=== PATIENT | female | born 2005 | race Caucasian/White ===

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

== ENCOUNTER 2023-04-28 12:58 | Emergency (ER) | payer MEDICAID, SELFPAY ==
--- NOTE | ~2023-04-28 | US_ITS ---
EXAMINATION: US RETROPERITONEAL LIMITED (RENAL ONLY) CLINICAL INFORMATION: Left flank pain, UTI. COMPARISON: None available. TECHNIQUE: Multiple 2-D grayscale and color Doppler ultrasound images of the kidneys were obtained. FINDINGS: RIGHT KIDNEY: 11.1 x 4.7 x 4.8 cm (SAG x AP x TRV). The kidney is normal in size, contour, and echogenicity. Renal cortical thickness is normal. No calculi or focal parenchymal lesions. No hydronephrosis. LEFT KIDNEY: 10.2 x 5.6 x 5.2 cm (SAG x AP x TRV). The kidney is normal in size, contour, and echogenicity. Renal cortical thickness is normal. No calculi or focal parenchymal lesions. No hydronephrosis. US/US renal BI IMPRESSION: No significant renal abnormality.
[2023-04-28 13:56] VITALS: BP 122/80; PULSE 69; RESP 18; TEMP 36.8; O2SAT 100; BMI 24.7
--- NOTE | 2023-04-28 13:59 | ED.FEMALEGU ---
HPI - Female Genitourinary General Chief complaint: Urogenital-Female Stated complaint: UTI/L flank pain/back pain Time Seen by Provider: 04/28/23 15:53 Source: patient, RN notes reviewed and old records reviewed Mode of arrival: ambulatory History of Present Illness HPI Narrative: 17-year-old female diagnosed with UTI today in urgent care started on Macrobid, has taken 1 dose, presenting to the ED complaining of worsening left flank pain, nausea, and dysuria since this morning. Denies vomiting, fever, chills, hematuria, vaginal bleeding/discharge, abdominal pain MD elicited complaint: dysuria, UTI and flank pain Related Data Previous Rx's Medication Instructions Recorded cefpodoxime 200 mg tablet 200 mg PO BID 7 days #14 tabs 04/28/23 Allergies Allergy/AdvReac Type Severity Reaction Status Date / Time No Known Allergies Allergy Verified 11/04/22 08:28 Review of Systems Review of Systems: Constitutional: No Fever, No Chills ENT/Mouth: No Ear Pain, No Nasal Congestion, No sore throat, No Rhinorrhea, No Swallowing Difficulty Cardiovascular: No Chest Pain, No SOB Respiratory: No Cough, No Sputum, No Wheezing Gastrointestinal: + Nausea, No Vomiting, No Diarrhea, No Constipation, No Abdominal pain Genitourinary: + Dysuria, No Urinary Frequency, No Hematuria, No Urinary Incontinence/retention, No Urgency, + Flank Pain Musculoskeletal: No joint pain, No Myalgias, No Joint Swelling Skin: No Skin Lesions, No rash Neuro: No Weakness Yes all other systems are reviewed and are negative Constitutional: Constitutional: Reports as per [facility] Past Medical History Attestation statement: The following information was validated with the patient. Source: old records reviewed Medical History Uterine cyst Social History Social History Alcohol intake: never Advance Directives: No Advance Directives Information Provided: No Physical Exam Vital Signs: Vital Signs: Last Vital Signs Temp 98.2 F 04/28/23 16:35 Pulse 74 04/28/23 16:35 Resp 16 04/28/23 16:35 BP 123/74 04/28/23 16:35 Pulse Ox 98 04/28/23 16:35 O2 Del Method Room Air 04/28/23 16:35 BMI result Body Mass Index 24.7 Const: General: cooperative, healthy appearing and no acute distress Orientation/consciousness: patient oriented x3 Limitations: no limitations HEENT: Head: Yes normal to inspection and Yes atraumatic Ears: hearing grossly normal bilaterally General nose exam: Normal external nose present Face and sinus: Yes normal facial exam Eyes: General: appearance normal, both eyes and all related structures EOM: EOMs intact bilaterally Neck: Neck: Yes normal visual inspection and Yes no meningeal signs Resp: Effort & Inspection: normal respiratory effort and no respiratory distress Auscultation: clear to auscultation bilaterally Cardio: Rate: regular rate Heart sounds: S1 normal heart sound present and S2 normal heart sound present GI: Inspection: Yes normal to inspection Palpation (GI): Soft to palpation, nontender, no guarding and not rigid : General: Yes CVA tenderness on the left Back/Spine/Pelvis: Back: CVA tenderness Skin: Rashes: no rashes Wounds: no wounds Neuro: General: patient oriented x3, tone normal and no meningeal signs Gait exam (Neuro): Normal gait present Extrem: General: Yes normal to inspection Course Course Course Narrative: RME - 17 yo female presents to the ER for evaluation of severe lower back pain after she was diagnosed with a UTI at urgent care this morning. She was started on macrobid and pyridium which she took. She is nauseated but not vomiting. +CVA tenderness on the left side. Not febrile or tachycardic in triage Plan: likely pyelo, less likely kidney stone, lab workup for now, hold off on CT scan -1615--no leukocytosis. Labs otherwise reassuring. UA contaminated however appears infected and with blood/RBCs. 1743--US renal BI IMPRESSION: No significant renal abnormality. > feel change patient's antibiotic to cefpodoxime to cover pyelonephritis. Results discussed with patient including worrisome signs and symptoms and strict return precautions, and when to return to the emergency department. They verbalized understanding and feel safe for discharge at this time. Medications Administered Discontinued Medications Generic Name Dose Route Start Last Admin Trade Name Freq PRN Reason Stop Dose Admin Ketorolac Tromethamine 30 mg 04/28/23 16:28 04/28/23 17:15 Ketorolac Tromethamine 30 Mg/Ml Vial IM 04/28/23 16:29 30 mg ONCE ONE Administration Medical Decision Making Medical Decision Making [facility] Narrative: 17-year-old female diagnosed with UTI today in urgent care started on Macrobid, has taken 1 dose, presenting to the ED complaining of worsening left flank pain, nausea, and dysuria since this morning. On exam vital signs stable, NAD, nontoxic appearing, abdomen soft/nontender, left CVAT noted. Concern for UTI/pyelo. Renal stone on differential however lower. Lower suspicion for diverticulitis/appendicitis or STI Plan: UA, labs, renal ultrasound Please refer to course for remaining clinical decision making, interpretation of labs/imaging results, and discussions with consultants and/or family members. Differential Diagnosis Differential Diagnoses: The differential diagnosis associated with the presentation includes As above Admission/Observation Consideration of admission/observation: Escalation of care including admission/observation considered Lab Data [facility] Lab Attestation statement: I reviewed the patient's lab results. 04/28/23 15:00 04/28/23 15:00 Labs: Lab Results 04/28/23 04/28/23 04/28/23 Range/Units 15:00 15:00 15:00 WBC 7.1 (4.8-10.8) X10*3/uL RBC 4.31 (4.20-5.50) X10*6/uL Hgb 12.0 (12.0-16.0) g/dl Hct 36.4 L (37.0-47.0) % MCV 84.5 (80.0-98.0) fL MCH 27.8 (27.0-33.0) pg MCHC 33.0 (31.0-35.0) g/dl RDW 13.6 (11.0-16.0) % Plt Count 257 (160-400) X10*3/uL MPV 10.9 (9.4-12.3) fL Immature Gran % (Auto) 0.4 (0.0-0.4) % Neut % (Auto) 59.8 (45-73) % Lymph % (Auto) 32.4 (20-40) % Graham % (Auto) 6.3 (2-11) % Eos % (Auto) 0.7 (0-4) % Baso % (Auto) 0.4 (0-2) % Lymph # (Auto) 2.3 (1.2-4.9) X10*3/uL Graham # (Auto) 0.5 (0.1-1.2) X10*3/uL Eos # (Auto) 0.1 (0.0-0.4) X10*3/uL Baso # (Auto) 0.0 (0.0-0.2) X10*3/uL Abs Immat Gran (auto) 0.03 (0.00-0.03) X10*3/uL Absolute Neuts (auto) 4.3 (2.0-8.3) x10*3/uL Absolute Nucleated RBC 0.000 (0.0-0.012) X10*3/uL Nucleated RBC % (auto) 0.0 (0.0-0.2) /100WBC Sodium 139 (135-145) mmol/L Potassium 3.7 (3.3-5.1) mmol/L Chloride 104 (96-108) mmol/L Carbon Dioxide 27 (22-29) mmol/L Anion Gap 12 (12-20) BUN 13 (9-16) mg/dL Creatinine 0.69 (0.5-1.4) mg/dL Estim Creat Clear Calc 127.5 Estimated GFR > 60 Random Glucose 82 (60-115) mg/dL Calcium 9.7 (8.4-10.2) mg/dL Magnesium 2.1 (1.6-2.6) mg/dL Total Bilirubin 0.5 (0.0-1.0) mg/dL Direct Bilirubin 0.2 (0.0-0.5) mg/dL AST 13 (5-31) U/L ALT 11 (0-31) U/L Alkaline Phosphatase 60 (39-117) U/L Total Protein 8.0 (6.5-8.0) g/dL Albumin 4.5 (3.5-5.0) g/dL Beta HCG, Quant < 2 mIU/mL Urine Color Urine Appearance Urine pH (5.0-9.0) Ur Specific [place] (1.005-1.025) Urine Protein (Neg-Trace) mg/dL Urine Glucose (UA) (Negative) mg/dL Urine Ketones (Negative) mg/dL Urine Blood (Negative) Urine Nitrite (Negative) Ur Leukocyte Esterase (Negative) Urine RBC (0-2) /HPF Urine WBC (0-5) /HPF Ur Squamous Epith Cells (0-2) /HPF Urine Bacteria (None Seen) Hyaline Casts (0-2) /LPF Urine Test (NEGATIVE) 04/28/23 04/28/23 Range/Units 15:00 15:01 WBC (4.8-10.8) X10*3/uL RBC (4.20-5.50) X10*6/uL Hgb (12.0-16.0) g/dl Hct (37.0-47.0) % MCV (80.0-98.0) fL MCH (27.0-33.0) pg MCHC (31.0-35.0) g/dl RDW (11.0-16.0) % Plt Count (160-400) X10*3/uL MPV (9.4-12.3) fL Immature Gran % (Auto) (0.0-0.4) % Neut % (Auto) (45-73) % Lymph % (Auto) (20-40) % Graham % (Auto) (2-11) % Eos % (Auto) (0-4) % Baso % (Auto) (0-2) % Lymph # (Auto) (1.2-4.9) X10*3/uL Graham # (Auto) (0.1-1.2) X10*3/uL Eos # (Auto) (0.0-0.4) X10*3/uL Baso # (Auto) (0.0-0.2) X10*3/uL Abs Immat Gran (auto) (0.00-0.03) X10*3/uL Absolute Neuts (auto) (2.0-8.3) x10*3/uL Absolute Nucleated RBC (0.0-0.012) X10*3/uL Nucleated RBC % (auto) (0.0-0.2) /100WBC Sodium (135-145) mmol/L Potassium (3.3-5.1) mmol/L Chloride (96-108) mmol/L Carbon Dioxide (22-29) mmol/L Anion Gap (12-20) BUN (9-16) mg/dL Creatinine (0.5-1.4) mg/dL Estim Creat Clear Calc Estimated GFR Random Glucose (60-115) mg/dL Calcium (8.4-10.2) mg/dL Magnesium (1.6-2.6) mg/dL Total Bilirubin (0.0-1.0) mg/dL Direct Bilirubin (0.0-0.5) mg/dL AST (5-31) U/L ALT (0-31) U/L Alkaline Phosphatase (39-117) U/L Total Protein (6.5-8.0) g/dL Albumin (3.5-5.0) g/dL Beta HCG, Quant mIU/mL Urine Color Leslie Urine Appearance Hazy Urine pH 5.0 (5.0-9.0) Ur Specific [place] 1.010 (1.005-1.025) Urine Protein 100 (2+) H (Neg-Trace) mg/dL Urine Glucose (UA) See Note (Negative) mg/dL Urine Ketones See Note (Negative) mg/dL Urine Blood Large (3+) H (Negative) Urine Nitrite Positive H (Negative) Ur Leukocyte Esterase Small (1+) H (Negative) Urine RBC >20 H (0-2) /HPF Urine WBC 21-50 (0-5) /HPF Ur Squamous Epith Cells 11-20 (0-2) /HPF Urine Bacteria 1+ (None Seen) Hyaline Casts 0-2 (0-2) /LPF Urine Test NEGATIVE (NEGATIVE) Radiology Impression Discussion of test interpretation with radiology: I have reviewed the radiologist's reading. External Record Review External record reviewed: Inpatient record, Office record, Outpatient record, Prior outpatient labs, Prior outpatient radiology, Primary care record and Outside ED record Tests considered The following testing was considered but not selected: As above Discharge Plan Discharge Clinical Impression: Pyelonephritis Patient Disposition: Home, Self-Care Instructions: Kidney Infection (ED) Additional Instructions: You likely have a kidney infection, called pyelonephritis. Please stop taking previously prescribed antibiotic, and start taking new antibiotic called cefpodoxime. You can continue previously given peridium which will help with urinary discomfort Increase fluid intake Take Tylenol and Motrin as needed Follow-up with her doctor If symptoms persist or worsen you have unbearable pain, fever, persistent nausea or vomiting return to the ED Prescriptions: New cefpodoxime 200 mg tablet 200 mg PO BID 7 Days Qty: 14 0RF Rx Instructions: must administer with a meal/food Referrals: Vincent King MD [Primary Care Provider] - 5 days
[2023-04-28 15:08] LABS: MANUAL DIFF FLAG NO
[2023-04-28 15:13] LABS: Appearance Urine Hazy; Color Urine Orange; Leukocyte Esterase Urine Small (1+) (Negative); Nitrite Urine Positive (Negative); UMIC TRIGGER UACC YES; Urine Blood Large (3+) (Negative); Urine Protein 100 (2+) mg/dL (Neg-Trace)
[2023-04-28 15:14] LABS: Urine Pregnancy NEGATIVE (NEGATIVE)
[2023-04-28 15:15] LABS: UPreg QC Valid YES
[2023-04-28 15:24] LABS: Bacteria Urine 1+ (None Seen); Hyaline Casts Urine 0-2 /LPF (0-2); RBC Urine >20 /HPF (0-2); UACC Culture Trigger YES; WBC Urine 21-50 /HPF (0-5)
[2023-04-28 15:26] LABS: Basophils Percent Auto 0.4 % (0-2); Eosinophils Absolute Auto 0.1 X10*3/uL (0.0-0.4); Eosinophils Percent Auto 0.7 % (0-4); Hematocrit 36.4 % (37.0-47.0); Imm Gran Abs Auto 0.03 X10*3/uL (0.00-0.03); Imm Gran Pct Auto 0.4 % (0.0-0.4); Lymphocytes Absolute Auto 2.3 X10*3/uL (1.2-4.9); Lymphocytes Percent Auto 32.4 % (20-40); Mean Corpuscular Hemoglobin 27.8 pg (27.0-33.0); Mean Corpuscular Volume 84.5 fL (80.0-98.0); Mean Platelet Volume 10.9 fL (9.4-12.3); Monocytes Absolute Auto 0.5 X10*3/uL (0.1-1.2); Monocytes Percent Auto 6.3 % (2-11); Neutrophils Absolute Auto 4.3 x10*3/uL (2.0-8.3); Neutrophils Percent Auto 59.8 % (45-73); Platelet Count 257 X10*3/uL (160-400); Red Blood Count 4.31 X10*6/uL (4.20-5.50); Red Cell Distribution Width 13.6 % (11.0-16.0); White Blood Count 7.1 X10*3/uL (4.8-10.8)
[2023-04-28 15:28] LABS: Alanine Aminotransferase 11 U/L (0-31); Albumin Level 4.5 g/dL (3.5-5.0); Alkaline Phosphatase 60 U/L (39-117); Anion Gap 12 (12-20); Aspartate Amino Transferase 13 U/L (5-31); Bilirubin Direct 0.2 mg/dL (0.0-0.5); Bilirubin Total 0.5 mg/dL (0.0-1.0); Blood Urea Nitrogen 13 mg/dL (9-16); Calcium 9.7 mg/dL (8.4-10.2); Carbon Dioxide 27 mmol/L (22-29); Chloride 104 mmol/L (96-108); Creatinine Clr Calc Pharmacy 127.5; Estimated Glomerular Filt Rate > 60; Glucose Random 82 mg/dL (60-115); Magnesium 2.1 mg/dL (1.6-2.6); Potassium 3.7 mmol/L (3.3-5.1); Sodium 139 mmol/L (135-145)
[2023-04-28 15:40] LABS: HCG Quantitative < 2 mIU/mL
[2023-04-28 16:35] VITALS: BP 123/74; PULSE 74; RESP 16; TEMP 36.8; O2SAT 98
[2023-04-28] MEDS: Ketorolac Tromethamine 30 MG/ML VIAL IM (17:15)
[2023-04-28 19:10] VITALS: BP 109/71; PULSE 75; RESP 18; TEMP 36.2; O2SAT 100
== END 2023-04-28 19:13 | disposition home or self-care (01) ==
PROVIDERS: Physician Assistant; Emergency Provider Emergency Medicine; PCP Internal Medicine
DX: N12 Tubulo-interstitial nephritis, not specified as acute or chronic (principal); M54.50 Low back pain, unspecified
CPT/HCPCS: 36415; 76775; 80048; 80076; 81001; 81025; 83735; 84702; 85025; 87086; 96372; 99284; J1885

== ENCOUNTER 2024-01-07 19:18 | Emergency (ER) | payer MEDICAID, SELFPAY ==
--- NOTE | ~2024-01-07 | US_ITS ---
EXAMINATION:US pelvic and transvaginal CLINICAL INFORMATION: Reason for Exam heavy vaginal bleeding COMPARISON: No priors available. LMP: Ongoing FINDINGS: UTERUS: The uterus is anteverted. Size: 7 x 3 cm. Uterine mass: There is no uterine mass. Cervix: Grossly unremarkable. Endometrium: No ultrasound evidence of endometrial lesion. endometrial thickness measures 0.1 2 endometrial canal towards the fundus suggesting arcuate versus septated uterus. ADNEXA: Normal Right ovary: Normal in size. Cystic structure likely dominant follicle 1.9 cm. Left ovary: Normal in size. Doppler exam: Normal Doppler flow identified in both ovaries. FREE FLUID: Trace amount of free fluid. OTHER FINDINGS: None US/US pelvic and transvaginal IMPRESSION: 1. No ultrasound explanation for patient's vaginal bleeding. 2. No uterine mass or fibroid found. 3. Cystic structure in the right ovary 1.9 cm likely dominant follicle. 4. There are 2 endometrial canal towards the fundus suggesting possibly mild arcuate or septated uterus questionable significance.
[2024-01-07 19:41] VITALS: BP 118/70; PULSE 86; RESP 16; TEMP 36.9; O2SAT 99; BMI 26.9
--- NOTE | 2024-01-07 19:41 | ED.GENADULT ---
HPI - General Adult General Chief complaint: General Medical Stated complaint: menstrual problems, nauseating cramps Time Seen by Provider: 01/07/24 23:41 Source: patient Mode of arrival: ambulatory Limitations: no limitations History of Present Illness HPI narrative: Patient' with history of dysfunctional uterine bleed been on multiple types of control pills in the past chest stopped last week complaining of heavy bleeding since 12/28 , changing 7-10 tampon a day patient passing clots no dizziness no shortness of breath Related Data Previous Rx's Medication Instructions Recorded cefpodoxime 200 mg tablet 200 mg PO BID 7 days #14 tabs 04/28/23 desogestrel 0.15 mg-ethinyl 1 tab PO DAILY #168 tabs 01/08/24 estradiol 0.03 mg tablet (Apri) Allergies Allergy/AdvReac Type Severity Reaction Status Date / Time No Known Allergies Allergy Verified 01/07/24 19:40 Review of Systems Review of Systems: Yes all other systems are reviewed and are negative PMFSH Past Medical History Medical History Uterine cyst Social History Social History Alcohol intake: never Smoked in Last 30 Days: No Use of substances other than those prescribed or required for medical reasons: No Advance Directives: No Advance Directives Information Provided: No Patient : No Physical Exam ED Vital Signs: Vital Signs - 24 hr 01/07/24 19:41 01/07/24 22:47 Temperature 98.4 F 98.4 F Pulse Rate 86 71 Respiratory Rate 16 18 Blood Pressure 118/70 97/56 L Pulse Oximetry 99 99 Oxygen Delivery Method Room Air Room Air BMI result Body Mass Index 26.9 Appearance: Alert. Oriented X3. No acute distress. Eyes: No pallor or icterus ENT: Pharynx normal. Oral Mucosa moist Neck: Normal inspection. Neck supple. CVS: Normal heart rate and rhythm. Pulses normal. Respiratory: No respiratory distress. Equal air entry bilateral, Abdomen: Soft and nontender. Bowel sounds are present, no mass palpable, no CVA tenderness Skin: Skin warm and dry. Normal skin color. Normal skin turgor. Extremities: No lower extremity edema. No calf tenderness Neuro: Oriented X 3. Course Course Course Narrative: RME:?18 year old female her for eval of heavy menstrual bleeding/ abdominal cramping x1 month. Endorses getting menstrual period twice this month, first 11/15/23- 11/21/23 then began bleeding again on 11/27/23 (10 days ago) & has been bleeding every since. Endorses heavy bleeding and painful cramps. Menstrual period typically lasts 4 days with light bleeding. Does not typically experience cramping. Not sexually active and denies chance of . Called OBGYN on Wednesday (4 days ago) who advised her to stop taking her BC. denies n/v. labs, ua, u preg, and us ordered Full HPI, ROS and PE to be performed by the primary ED provider. 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 01/07/24 19:57 01/07/24 19:57 Labs: Lab Results 01/07/24 Range/Units 19:57 WBC 7.3 (4.8-10.8) X10*3/uL RBC 4.75 (4.20-5.50) X10*6/uL Hgb 13.8 (12.0-16.0) g/dl Hct 40.4 (37.0-47.0) % MCV 85.1 (80.0-98.0) fL MCH 29.1 (27.0-33.0) pg MCHC 34.2 (31.0-35.0) g/dl RDW 12.4 (11.0-16.0) % Plt Count 259 (160-400) X10*3/uL MPV 10.4 (9.4-12.3) fL Immature Gran % (Auto) 0.3 (0.0-0.4) % Neut % (Auto) 58.8 (45-73) % Lymph % (Auto) 30.8 (20-40) % [place] % (Auto) 6.7 (2-11) % Eos % (Auto) 2.8 (0-4) % Baso % (Auto) 0.6 (0-2) % Lymph # (Auto) 2.2 (1.2-4.9) X10*3/uL [place] # (Auto) 0.5 (0.1-1.2) X10*3/uL Eos # (Auto) 0.2 (0.0-0.4) X10*3/uL Baso # (Auto) 0.0 (0.0-0.2) X10*3/uL Abs Immat Gran (auto) 0.02 (0.00-0.03) X10*3/uL Absolute Neuts (auto) 4.3 (2.0-8.3) x10*3/uL Absolute Nucleated RBC 0.000 (0.0-0.012) X10*3/uL Nucleated RBC % (auto) 0.0 (0.0-0.2) /100WBC Sodium 139 (135-145) mmol/L Potassium 4.2 (3.3-5.1) mmol/L Chloride 106 (96-108) mmol/L Carbon Dioxide 24 (22-29) mmol/L Anion Gap 13 (12-20) BUN 15 (9-16) mg/dL Creatinine 1.10 (0.5-1.4) mg/dL Estim Creat Clear Calc 87.6 Estimated GFR > 60 Random Glucose 85 (60-115) mg/dL Calcium 9.6 (8.4-10.2) mg/dL Urine Color Yellow Urine Appearance Clear Urine pH 8.0 (5.0-9.0) Ur Specific [place] 1.010 (1.005-1.025) Urine Protein Negative (Neg-Trace) mg/dL Urine Glucose (UA) Negative (Negative) mg/dL Urine Ketones Negative (Negative) mg/dL Urine Blood Negative (Negative) Urine Nitrite Negative (Negative) Ur Leukocyte Esterase Negative (Negative) Urine Test NEGATIVE (NEGATIVE) Independent Interpretation I performed an independent interpretation of an: Ultrasound Radiology Impression Discussion of test interpretation with radiology: I have reviewed the radiologist's reading. Radiologist Impression: US/US pelvic and transvaginal IMPRESSION: 1. No ultrasound explanation for patient's vaginal bleeding. 2. No uterine mass or fibroid found. 3. Cystic structure in the right ovary 1.9 cm likely dominant follicle. 4. There are 2 endometrial canal towards the fundus suggesting possibly mild arcuate or septated uterus questionable signif Discharge Plan Discharge Clinical Impression: Menorrhagia Patient Disposition: Home, Self-Care Instructions: Menorrhagia (ED) Additional Instructions: Drink plenty of fluids ibuprofen for pain control pills as advised Follow with retail manager in training Prescriptions: New desogestrel-ethinyl estradiol [Apri] 0.15-0.03 mg tablet 1 tab PO DAILY Qty: 168 0RF No Action cefpodoxime 200 mg tablet 200 mg PO BID 7 Days Qty: 14 0RF Rx Instructions: must administer with a meal/food Interventions: ED Discharge Assessment Last Done: 01/08/24 00:14 Discharge Date/Time: 01/08/24 00:15
--- NOTE | 2024-01-07 19:58 | MHC.EDTECH ---
Patient brought into triage,labs,and a urine sample obtained and sent to lab,patient brought to fast track [facility] room 5.
[2024-01-07 20:04] LABS: MANUAL DIFF FLAG NO
[2024-01-07 20:05] LABS: Basophils Percent Auto 0.6 % (0-2); Eosinophils Absolute Auto 0.2 X10*3/uL (0.0-0.4); Eosinophils Percent Auto 2.8 % (0-4); Hematocrit 40.4 % (37.0-47.0); Hemoglobin 13.8 g/dl (12.0-16.0); Imm Gran Abs Auto 0.02 X10*3/uL (0.00-0.03); Imm Gran Pct Auto 0.3 % (0.0-0.4); Lymphocytes Absolute Auto 2.2 X10*3/uL (1.2-4.9); Lymphocytes Percent Auto 30.8 % (20-40); Mean Corpuscular HGB Conc 34.2 g/dl (31.0-35.0); Mean Corpuscular Hemoglobin 29.1 pg (27.0-33.0); Mean Corpuscular Volume 85.1 fL (80.0-98.0); Mean Platelet Volume 10.4 fL (9.4-12.3); Monocytes Absolute Auto 0.5 X10*3/uL (0.1-1.2); Monocytes Percent Auto 6.7 % (2-11); Neutrophils Absolute Auto 4.3 x10*3/uL (2.0-8.3); Neutrophils Percent Auto 58.8 % (45-73); Platelet Count 259 X10*3/uL (160-400); Red Blood Count 4.75 X10*6/uL (4.20-5.50); Red Cell Distribution Width 12.4 % (11.0-16.0); White Blood Count 7.3 X10*3/uL (4.8-10.8)
[2024-01-07 20:07] LABS: UPreg QC Valid YES; Urine Pregnancy NEGATIVE (NEGATIVE)
[2024-01-07 20:08] LABS: Appearance Urine Clear; Color Urine Yellow; Glucose Urine UA Negative (Negative); Leukocyte Esterase Urine Negative (Negative); Nitrite Urine Negative (Negative); Urine Blood Negative (Negative); Urine Ketones Negative (Negative); Urine Protein Negative (Neg-Trace)
[2024-01-07 20:19] LABS: Anion Gap 13 (12-20); Blood Urea Nitrogen 15 mg/dL (9-16); Calcium 9.6 mg/dL (8.4-10.2); Carbon Dioxide 24 mmol/L (22-29); Chloride 106 mmol/L (96-108); Creatinine Clr Calc Pharmacy 87.6; Estimated Glomerular Filt Rate > 60; Glucose Random 85 mg/dL (60-115); Potassium 4.2 mmol/L (3.3-5.1); Sodium 139 mmol/L (135-145)
[2024-01-07 22:47] VITALS: BP 97/56; PULSE 71; RESP 18; TEMP 36.9; O2SAT 99
--- NOTE | 2024-01-07 22:49 | PC.NURSE ---
pt remains calm, resting queitly awaitind provider. states that tampon lasts 30-45 minutes. Was able to tolerate transvaginal U/S. Denies dizziness with change in position.
== END 2024-01-08 00:15 | disposition home or self-care (01) ==
PROVIDERS: Physician Assistant Medical; Emergency Provider Internal Medicine; PCP Internal Medicine
DX: N92.0 Excessive and frequent menstruation with regular cycle (principal); N93.8 Other specified abnormal uterine and vaginal bleeding
CPT/HCPCS: 36415; 76830; 76856; 80048; 81003; 81025; 85025; 99284

== ENCOUNTER 2024-05-28 01:37 | Emergency (ER) | payer MEDICAID, SELFPAY ==
--- NOTE | ~2024-05-28 | US_ITS ---
EXAMINATION: US PELVIS CLINICAL INFORMATION: Right ovarian cyst distortion suspected COMPARISON: 05/28/2024 CT TECHNIQUE: Ultrasound of the pelvis is performed using both transabdominal and transvaginal transducers along with Doppler. Transvaginal imaging is performed due to inadequate visualization transabdominally. FINDINGS: Uterus: The uterus is anteverted and measures 8.6 x 3.7 x 5.0. There is suggestion of arcuate anatomy. No visible fibroids. The double wall endometrial thickness is 10 mm. IUD is seen and appears appropriate in position. Adnexa: Both ovaries are visualized. Flow demonstrated to the bilateral ovaries. Right ovary measures 7.8 x 5.3 x 5.7 cm. Volume is 12.3 mL. Previous right ovarian measurement was 4.0 x 4.1 x 2.3 cm. There is a 6.8 x 5.1 x 5.4 cm right ovarian cyst with internal echoes. Left ovary measures 4.4 x 1.9 x 3.7 cm. Ovarian volume 16.2 mL. Previous measurement was 3.9 x 3.2 x 2.1 cm. There is no pelvic ascites or fluid collection. US/US pelvic and transvaginal IMPRESSION: 6.8 cm right ovarian cyst, likely hemorrhagic. IUD in appropriate position. Arcuate uterine anatomy questioned.
--- NOTE | ~2024-05-28 | CT_ITS ---
EXAMINATION: CT ABDOMEN AND PELVIS WITH CONTRAST CLINICAL INFORMATION: Pain. COMPARISON: None available. TECHNIQUE: Multidetector volumetric images were obtained from the superior aspect of the liver through the pubic symphysis following administration 85 mL of Omnipaque 350 intravenous contrast. Sagittal and coronal reformatted images were obtained on the technologist's workstation. Oral contrast: No This CT examination was performed using dose optimization techniques as appropriate, variously including the following: *Automated exposure control *Adjustment of mA and/or kV according to patient size (this includes techniques or standardized protocols for targeted exams where dose is matched to indication/reason for exam; i.e. extremities or head) *Use of iterative reconstruction technique DLP: 612 mGy-cm FINDINGS: LUNG BASES: The visualized lung bases are unremarkable. LIVER, GALLBLADDER, AND BILIARY TREE: The liver is normal in size, shape, and attenuation. No focal hepatic lesion or biliary ductal dilatation is present. The gallbladder is unremarkable with no evidence of radiopaque gallstones, gallbladder wall thickening, or obvious pericholecystic inflammatory changes. PANCREAS: Unremarkable. SPLEEN: Unremarkable. ADRENAL GLANDS: Unremarkable. KIDNEYS AND URETERS: The kidneys are normal in size, shape, and attenuation. No hydronephrosis, hydroureter, or calculi seen. No perinephric stranding. BLADDER: Unremarkable. GASTROINTESTINAL TRACT: Retained stool throughout the colon. The appendix is visualized and is within normal limits ABDOMINAL WALL: No significant hernia is appreciated. LYMPH NODES: Normal. VASCULAR: Unremarkable. PELVIC VISCERA: There is a 6.6 cm rounded low-density structure within the right adnexa associated with the right ovary. An IUD is noted in place and appears to be in good position. OSSEOUS STRUCTURES: Unremarkable. CT/CT abdomen pelvis w IV con IMPRESSION: 1. There is a 6.6 cm rounded low-density structure within the right adnexa associated with the right ovary. This may represent an ovarian cyst. 2. Retained stool throughout the colon. Fleischner guidelines were followed.
--- NOTE | ~2024-05-28 | US_ITS ---
EXAMINATION: US PELVIS CLINICAL INFORMATION: Right ovarian cyst distortion suspected COMPARISON: 05/28/2024 CT TECHNIQUE: Ultrasound of the pelvis is performed using both transabdominal and transvaginal transducers along with Doppler. Transvaginal imaging is performed due to inadequate visualization transabdominally. FINDINGS: Uterus: The uterus is anteverted and measures 8.6 x 3.7 x 5.0. There is suggestion of arcuate anatomy. No visible fibroids. The double wall endometrial thickness is 10 mm. IUD is seen and appears appropriate in position. Adnexa: Both ovaries are visualized. Flow demonstrated to the bilateral ovaries. Right ovary measures 7.8 x 5.3 x 5.7 cm. Volume is 12.3 mL. Previous right ovarian measurement was 4.0 x 4.1 x 2.3 cm. There is a 6.8 x 5.1 x 5.4 cm right ovarian cyst with internal echoes. Left ovary measures 4.4 x 1.9 x 3.7 cm. Ovarian volume 16.2 mL. Previous measurement was 3.9 x 3.2 x 2.1 cm. There is no pelvic ascites or fluid collection. US/US pelvic ovarian doppler IMPRESSION: 6.8 cm right ovarian cyst, likely hemorrhagic. IUD in appropriate position. Arcuate uterine anatomy questioned.
[2024-05-28 01:38] VITALS: BP 136/85; PULSE 118; RESP 24; TEMP 36.2; O2SAT 100; BMI 27.4
[2024-05-28 01:51] VITALS: BP 119/68; PULSE 106; RESP 20; TEMP 36.3; O2SAT 100
--- NOTE | 2024-05-28 02:20 | ED_ITS ---
HPI - General Adult General Chief complaint: Abdominal Pain Stated complaint: abd pain Time Seen by Provider: 05/28/24 02:09 Source: patient Mode of arrival: ambulatory Limitations: no limitations History of Present Illness ED Provider: Dr. Gabbie Robert HPI narrative: Patient comes to the emergency room complaining of 2 weeks of abdominal pain. Patient states that she recently returned from [facility], the 1st week when she returned patient had diarrhea, no vomiting. Patient states that she was supposed to have a stool test done, but the diarrhea subsided and then became constipation. Patient states she has not had a bowel movement in about a week. Patient denies any vaginal bleeding. Patient states that she has pain in the suprapubic area, mild discomfort with urination, no hematuria. Patient has had pyelonephritis in the past. Patient denies any fever or chills. Patient complaining of severe anxiety, states she has panic attacks. Currently feeling extremely anxious. Related Data Previous Rx's ?Medication ?Instructions ?Recorded cefpodoxime 200 mg tablet 200 mg PO BID 7 days #14 tabs 04/28/23 desogestrel 0.15 mg-ethinyl 1 tab PO DAILY #168 tabs 01/08/24 estradiol 0.03 mg tablet (Apri) ketorolac 10 mg tablet 10 mg PO Q8H PRN pain #10 tabs 05/28/24 Allergies Allergy/AdvReac Type Severity Reaction Status Date / Time No Known Allergies Allergy Verified 05/28/24 01:39 Review of Systems 2 Review of Systems: Constitutional : No Weight loss, No Fever, No Chills, No Night Sweats, No Fatigue, No Malaise ENT/Mouth : No Hearing loss, No Ear Pain, No Nasal Congestion, No Sinus Pain, No Hoarseness, No sore throat, No Rhinorrhea, No Swallowing Difficulty Eyes: No Eye Pain, No Swelling, No Redness, No Foreign Body, No Discharge, No Vision Changes Cardiovascular : No Chest Pain, No SOB, No Dyspnea on Exertion, No Orthopnea, No Edema, No Palpitations Respiratory : No Cough, No Sputum, No Wheezing, No Smoke Exposure, No Dyspnea Gastrointestinal : No Nausea, No Vomiting, complaining of diarrhea which self resolved, now constipated, complaining of bilateral lower quadrant pain and significant suprapubic tenderness. No abdominal Pain, No Hematochezia, No Melena Genitourinary : no irregular bleeding, complaining of Dysuria, No Urinary Frequency, No Hematuria, No Urinary Incontinence, No Urgency, denies Flank Pain, No Urinary Flow Changes, No Hesitancy Musculoskeletal : No joint pain, No Myalgias, No Joint Swelling Skin : No Skin Lesions, No rash Neuro : No Weakness, No Numbness, No Paresthesias, No Loss of Consciousness, No Dizziness, No Headache Psych : Complaining of anxiety and panic attack, No Depression, No SI/HI/AH/VH, No Social Issues, Heme/Lymph: No Bruising, No Bleeding,No Lymphadenopathy Endocrine : No Polyuria, No Polydipsia, No Temperature Intolerance [facility] Past Medical History Medical History (Updated 05/28/24 @ 06:47 by Gabbie Robert MD) Ruptured ovarian cyst Uterine cyst Social History Social History Alcohol intake: never Advance Directives: No Advance Directives Information Provided: No Do you have a plan to hurt others: No Plan Physical Exam ED Vital Signs: Vital Signs - 24 hr 05/28/24 01:38 05/28/24 01:51 05/28/24 05:21 Temperature 97.2 F 97.3 F 96.8 F Pulse Rate 118 H 106 H 82 Respiratory Rate 24 H 20 16 Blood Pressure 136/85 119/68 93/42 L Pulse Oximetry 100 100 98 Oxygen Delivery Method Room Air Room Air Room Air BMI result Body Mass Index 27.4 Const Other: Appearance: Alert. Oriented X3. Very anxious Eyes: Pupils equal, round and reactive to light. ENT: Pharynx normal. Neck: Normal inspection. Neck supple. No lymph nodes noted. No crepitus CVS: Normal heart rate and rhythm. Pulses normal. Normal S1 and S2 Respiratory: No respiratory distress. Breath sounds normal. No Wheezing. No rales Abdomen: Soft , tenderness to palpation in suprapubic area Skin: Skin warm , clammy. Normal skin color. Normal skin turgor. Extremities: No lower extremity edema. No Lacerations. No Rash Neuro: Oriented X 3. No motor deficit. No sensory deficit. Moving all extremities. No slurred speech. CN 2 through 12 grossly intact Psych: Very anxious, hyperventilating Course Course Course Narrative: -all of patient's labs pending -patient receiving IV fluids, Toradol, Zofran and 1 mg of Ativan Medications Administered Discontinued Medications Generic Name Dose Route Start Last Admin Trade Name Negar PRN Reason Stop Dose Admin Sodium Chloride 1,000 mls @ 999 mls/hr 05/28/24 02:19 05/28/24 02:31 Ns IVCONT 05/28/24 03:19 999 mls/hr .Q1H1M ONE Administration Iohexol 85 ml 05/28/24 03:32 05/28/24 03:34 Iohexol 350 Mg/Ml 100 Ml Infus..Btl IV 05/28/24 03:33 85 ml ONCE ONE Administration Ketorolac Tromethamine 30 mg 05/28/24 02:19 05/28/24 02:32 Ketorolac Tromethamine 30 Mg/Ml Vial IVPUSH 05/28/24 02:20 30 mg ONCE ONE Administration Lorazepam 1 mg 05/28/24 02:19 05/28/24 02:32 Lorazepam 2 Mg/Ml Vial IVPUSH 05/28/24 02:20 1 mg STAT STA Administration Ondansetron HCl 4 mg 05/28/24 02:19 05/28/24 02:32 Ondansetron Hcl 4 Mg/2 Ml Vial IVPUSH 05/28/24 02:20 4 mg ONCE ONE Administration Medical Decision Making Medical Decision Making [facility] Narrative: -my interpretation of labs, normal hematology, normal chemistry, hCG negative, urinalysis negative -my interpretation of the abdomen, no SBO, no obvious signs of appendicitis. Radiology report: 6.6 cm ovarian cyst -patient continues having abdominal pain despite IV medication. We will medicate more and also order an ultrasound to rule out torsion -ultrasound radiology report pending. Sign-out given to my colleague DELPHINE Stiles, anticipating discharged home Differential Diagnosis Differential Diagnoses: The differential diagnosis associated with the presentation includes (Ovarian cyst, ovarian torsion, appendicitis) Admission/Observation Consideration of admission/observation: Escalation of care including admission/observation considered (Given patient's presentation, observation was considered) Lab Data [facility] Lab Attestation statement: I reviewed the patient's lab results. 05/28/24 02:28 05/28/24 02:28 Labs: Lab Results 05/28/24 05/28/24 Range/Units 02:28 02:28 WBC 8.1 (4.8-10.8) X10*3/uL RBC 4.31 (4.20-5.50) X10*6/uL Hgb 13.3 (12.0-16.0) g/dl Hct 37.1 (37.0-47.0) % MCV 86.1 (80.0-98.0) fL MCH 30.9 (27.0-33.0) pg MCHC 35.8 H (31.0-35.0) g/dl RDW 12.9 (11.0-16.0) % Plt Count 221 (160-400) X10*3/uL MPV 10.3 (9.4-12.3) fL Absolute Nucleated RBC 0.000 (0.0-0.012) X10*3/uL Nucleated RBC % (auto) 0.0 (0.0-0.2) /100WBC Sodium 142 (135-145) mmol/L Potassium 3.8 (3.3-5.1) mmol/L Chloride 111 H (96-108) mmol/L Carbon Dioxide 19 L (22-29) mmol/L Anion Gap 16 (12-20) BUN 12 (9-16) mg/dL Creatinine 0.69 (0.5-1.4) mg/dL Estim Creat Clear Calc 139.8 Estimated GFR > 60 Random Glucose 83 (60-115) mg/dL Calcium 10.0 (8.4-10.2) mg/dL Total Bilirubin 0.2 (0.0-1.0) mg/dL AST 14 (5-31) U/L ALT 16 (0-31) U/L Alkaline Phosphatase 58 (39-117) U/L Total Protein 7.4 (6.5-8.0) g/dL Albumin 4.3 (3.5-5.0) g/dL Lipase 40 (8-78) U/L Beta HCG, Quant < 2 Cancelled mIU/mL Urine Color Yellow Urine Appearance Clear Urine pH 6.0 (5.0-9.0) Ur Specific [place] 1.010 (1.005-1.025) Urine Protein Negative (Neg-Trace) mg/dL Urine Glucose (UA) Negative (Negative) mg/dL Urine Ketones Negative (Negative) mg/dL Urine Blood Negative (Negative) Urine Nitrite Negative (Negative) Ur Leukocyte Esterase Negative (Negative) Independent Interpretation I performed an independent interpretation of an: Ultrasound and CT Scan Radiology Impression Discussion of test interpretation with radiology: I have reviewed the radiologist's reading. Radiologist Impression: FINDINGS: LUNG BASES: The visualized lung bases are unremarkable. LIVER, GALLBLADDER, AND BILIARY TREE: The liver is normal in size, shape, and attenuation. No focal hepatic lesion or biliary ductal dilatation is present. The gallbladder is unremarkable with no evidence of radiopaque gallstones, gallbladder wall thickening, or obvious pericholecystic inflammatory changes. PANCREAS: Unremarkable. SPLEEN: Unremarkable. ADRENAL GLANDS: Unremarkable. KIDNEYS AND URETERS: The kidneys are normal in size, shape, and attenuation. No hydronephrosis, hydroureter, or calculi seen. No perinephric stranding. BLADDER: Unremarkable. GASTROINTESTINAL TRACT: Retained stool throughout the colon. The appendix is visualized and is within normal limits ABDOMINAL WALL: No significant hernia is appreciated. LYMPH NODES: Normal. VASCULAR: Unremarkable. PELVIC VISCERA: There is a 6.6 cm rounded low-density structure within the right adnexa associated with the right ovary. An IUD is noted in place and appears to be in good position. OSSEOUS STRUCTURES: Unremarkable. CT/CT abdomen pelvis w IV con IMPRESSION: 1. There is a 6.6 cm rounded low-density structure within the right adnexa associated with the right ovary. This may represent an ovarian cyst. 2. Retained stool throughout the colon. Critical Care Time Critical Care Time Critical Care Time: Yes Total Critical Care Time: 45 Attestation: I have personally provided critical care time. Time includes review of lab data, radiology results, discussion with consultants, and monitoring for potential decompensation. Intervention performed as documented. Discharge Plan Discharge Clinical Impression: Abdominal pain, Ovarian cyst Patient Disposition: Home, Self-Care Instructions: Ovarian Cyst (ED) Additional Instructions: Please follow-up with your primary care physician tomorrow. If you have any worsening or new symptoms, please return to the emergency room or call 911 Prescriptions: New ketorolac 10 mg tablet 10 mg PO Q8H PRN (Reason: pain) Qty: 10 0RF Rx Instructions: maximum total duration of 5 days from all oral, intranasal, or parenteral formulations No Action desogestrel-ethinyl estradiol [Apri] 0.15-0.03 mg tablet 1 tab PO DAILY Qty: 168 0RF cefpodoxime 200 mg tablet 200 mg PO BID 7 Days Qty: 14 0RF Rx Instructions: must administer with a meal/food Referrals: Jv Paniagua MD [Physician] - 05/29/24 Stand Alone Forms: Work/School Release Print Language: Arabic
[2024-05-28] MEDS: 0.9 % Sodium Chloride 1,000 ML 999 ML IVCONT (02:31)
[2024-05-28] MEDS: LORazepam 2 MG/ML VIAL 1 MG IVPUSH (02:32)
[2024-05-28] MEDS: ondansetron HCL 4 MG/2 ML VIAL IVPUSH (02:32)
[2024-05-28] MEDS: Ketorolac Tromethamine 30 MG/ML VIAL IVPUSH (02:32)
[2024-05-28 02:37] LABS: Appearance Urine Clear; Color Urine Yellow; Glucose Urine UA Negative (Negative); Leukocyte Esterase Urine Negative (Negative); Nitrite Urine Negative (Negative); Urine Blood Negative (Negative); Urine Ketones Negative (Negative); Urine Protein Negative (Neg-Trace)
[2024-05-28 02:38] LABS: Hematocrit 37.1 % (37.0-47.0); Hemoglobin 13.3 g/dl (12.0-16.0); Mean Corpuscular HGB Conc 35.8 g/dl (31.0-35.0); Mean Corpuscular Hemoglobin 30.9 pg (27.0-33.0); Mean Corpuscular Volume 86.1 fL (80.0-98.0); Mean Platelet Volume 10.3 fL (9.4-12.3); Platelet Count 221 X10*3/uL (160-400); Red Blood Count 4.31 X10*6/uL (4.20-5.50); Red Cell Distribution Width 12.9 % (11.0-16.0); White Blood Count 8.1 X10*3/uL (4.8-10.8)
[2024-05-28 02:58] LABS: Alanine Aminotransferase 16 U/L (0-31); Albumin Level 4.3 g/dL (3.5-5.0); Alkaline Phosphatase 58 U/L (39-117); Anion Gap 16 (12-20); Aspartate Amino Transferase 14 U/L (5-31); Bilirubin Total 0.2 mg/dL (0.0-1.0); Blood Urea Nitrogen 12 mg/dL (9-16); Carbon Dioxide 19 mmol/L (22-29); Chloride 111 mmol/L (96-108); Creatinine Clr Calc Pharmacy 139.8; Estimated Glomerular Filt Rate > 60; Glucose Random 83 mg/dL (60-115); Lipase 40 U/L (8-78); Potassium 3.8 mmol/L (3.3-5.1); Sodium 142 mmol/L (135-145); Total Protein 7.4 g/dL (6.5-8.0)
[2024-05-28 03:07] LABS: HCG Quantitative < 2 mIU/mL
[2024-05-28] MEDS: iohexoL 350 MG/ML 100 ML INFUS..BTL 85 ML IV (03:34)
[2024-05-28 05:21] VITALS: BP 93/42; PULSE 82; RESP 16; TEMP 36; O2SAT 98
[2024-05-28 07:49] VITALS: BP 96/59; PULSE 68; RESP 14; TEMP 36.8; O2SAT 98
[2024-05-28 07:56] VITALS: RESP 14
[2024-05-28] MEDS: Morphine Sulfate 2 MG/ML CARTRIDGE 1 MG IVPUSH (07:56)
--- NOTE | 2024-05-28 08:11 | PC.NURSE ---
Care of Pt assumed at change of shift. Pt returns from U/S and is noted to be resting comfortably with eye closed. 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 VSS, afebrile, A&Ox3. Morphine given IV push per MAR. Asbestos Shingle Inspector at bedside.
[2024-05-28 09:01] VITALS: BP 92/56; PULSE 78; RESP 14; TEMP 36.6; O2SAT 99
== END 2024-05-28 09:02 | disposition home or self-care (01) ==
PROVIDERS: Emergency Provider Emergency Medicine
DX: N83.201 Unspecified ovarian cyst, right side (principal); R10.2 Pelvic and perineal pain; R19.7 Diarrhea, unspecified; R11.2 Nausea with vomiting, unspecified; Z79.899 Other long term (current) drug therapy
CPT/HCPCS: 36415; 74177; 76830; 76856; 80053; 81003; 83690; 84702; 85027; 93975; 96360; 96374; 96376; 99284; 99285; J1885; J2060; J2270; J2405; Q9967